=== PATIENT | male | born 1955 | race Caucasian/White ===

== ENCOUNTER 2024-10-12 16:10 | Inpatient (IN) | payer MEDICARE, OTHER ==
[~2024-10-12] VITALS: Ht 172.7 cm; Wt 62.1 kg
[~2024-10-12 16:10] MED LIST: ACET-2605 PO; ALBU8.5H8 IH; ASPI81TA31 PO; ATOR80TA PO; CARV3.122 PO; DOCU100C36 PO; EMPA10TA PO; FURO20TA4 PO; HYDR-4209 PO; LORA-259 PO; QUET25TA PO; SACU1TAB PO; SERT25TA PO
[2024-10-12 16:12] VITALS: BP 116/73
[2024-10-12] MEDS ORDERED: EMPA10TA PO (16:34)
[2024-10-12] MEDS ORDERED: HALO5TAB12 IM (16:34)
[2024-10-12 16:45] LABS: PLATELET COUNT (AUTO) 183 K/uL (152-348); RED BLOOD CELL COUNT(AUTO) 4.61 MIL/uL (4.06-5.63); RED CELL DISTRIBUTION WIDTH 14.0 % (12.1-16.2); WHITE BLOOD COUNT (AUTO) 7.2 K/uL (3.6-10.2)
[2024-10-12] MEDS ORDERED: ONDANSETRON 4 MG/2 ML VIAL IV PRN (16:45)
[2024-10-12] MEDS ORDERED: ACETAMINOPHEN 325 MG TABLET PO PRN (16:45)
[2024-10-12 16:57] LABS: CREATININE 1.9 mg/dL (0.6-1.3); SODIUM SERUM 142 mmol/L (136-145); UREA NITROGEN, BLOOD 41 mg/dL (7-18)
[2024-10-12 17:03] LABS: ASPARTATE AMINOTRANSFERASE 13 U/L (15-37); TOTAL PROTEIN, SERUM 7.0 g/dL (6.4-8.2)
[2024-10-12 17:05] LABS: ABG BASE EXCESS 0.5 mmol/L (-2.0-3.0); ABG HCO3 24.0 mmol/L (21.0-28.0); ABG PCO2 35.2 mmHg (35.0-48.0); ABG PH 7.452 (7.350-7.450); ABG PO2 71.4 mmHg (83.0-108.0); ABG SITE LEFT BRACHIAL; ABG TOTAL HEMOGLOBIN 14.2 G/dL (13.5-17.5); AaDO2 95.2 mmHg; FIO2 21.0 %
[2024-10-12 17:09] LABS: ETHANOL < 3 MG/DL (0-10)
[2024-10-12] MEDS: DOCUSATE SODIUM 100 MG CAPSULE PO SCH (18:00)
[2024-10-12 18:13] VITALS: BP 127/72; TEMP 97.6; O2SAT 95
[2024-10-12] MEDS: HEPARIN SODIUM,PORCINE 5,000 UNITS/ML VIAL SQ SCH (18:13)
[2024-10-12] MEDS: IV NS 1000 ML 1,000 ML IV SCH (18:13)
[2024-10-12 19:24] VITALS: BP 121/75; TEMP 98; O2SAT 98
[2024-10-12] MEDS: MORPHINE SULFATE 2 MG/1 ML DISP.SYRIN IVP PRN (20:39)
[2024-10-13 05:38] VITALS: BP 111/74; TEMP 98; O2SAT 98
[2024-10-13 06:46] LABS: PLATELET COUNT (AUTO) 147 K/uL (152-348); RED BLOOD CELL COUNT(AUTO) 4.00 MIL/uL (4.06-5.63); RED CELL DISTRIBUTION WIDTH 13.9 % (12.1-16.2); WHITE BLOOD COUNT (AUTO) 6.4 K/uL (3.6-10.2)
[2024-10-13 07:09] LABS: ASPARTATE AMINOTRANSFERASE 9.0 U/L (15-37); CREATININE 1.8 mg/dL (0.6-1.3); SODIUM SERUM 143.0 mmol/L (136-145); TOTAL PROTEIN, SERUM 5.9 g/dL (6.4-8.2); UREA NITROGEN, BLOOD 43.0 mg/dL (7-18)
[2024-10-13] MEDS ORDERED: ALBUTEROL SULFATE 8 GM HFA.AER.AD IH PRN (08:45)
[2024-10-13] MEDS ORDERED: HALOPERIDOL 5 MG TABLET PO PRN (08:45)
[2024-10-13] MEDS: DOCUSATE SODIUM 100 MG CAPSULE PO SCH (09:00)
[2024-10-13] MEDS: MIRALAX 17 GM POWD.PACK PO SCH (09:00)
[2024-10-13] MEDS: QUETIAPINE FUMARATE 25 MG TABLET PO SCH (09:13)
[2024-10-13] MEDS: FUROSEMIDE 20 MG TABLET PO SCH (09:13)
[2024-10-13] MEDS: SERTRALINE HCL 50 MG TABLET PO SCH (09:16)
[2024-10-13] MEDS: ASPIRIN 81 MG TAB.CHEW PO SCH (09:21)
[2024-10-13] MEDS: SACUBITRIL/VALSARTAN 24 MG-26 TABLET PO SCH (09:54)
[2024-10-13] MEDS: EMPAGLIFLOZIN 10 MG TABLET PO SCH (09:55)
[2024-10-13] MEDS: CARVEDILOL 3.125 MG TABLET PO SCH (09:56)
[2024-10-13] MEDS ORDERED: HALO5SYR3 IM (11:34)
[2024-10-13] MEDS ORDERED: ALBUTEROL SULFATE 2.5 MG/ 0.5 ML NEBU NEB PRN (11:45)
[2024-10-13 11:51] VITALS: BP 102/58; TEMP 98.2; O2SAT 96
[2024-10-13 15:58] VITALS: BP 129/69; TEMP 98.9; O2SAT 95
[2024-10-13] MEDS: ATORVASTATIN 40 MG TABLET PO SCH (20:12)
[2024-10-13 20:31] VITALS: BP 101/41; TEMP 98.3; O2SAT 95
[2024-10-14 04:06] VITALS: BP 155/86; TEMP 97.8; O2SAT 97
[2024-10-14 10:26] VITALS: BP 114/66; TEMP 98; O2SAT 96
[2024-10-14 15:26] VITALS: BP 104/78; TEMP 98.5; O2SAT 96
[2024-10-14 20:50] VITALS: BP 97/50; TEMP 98.5; O2SAT 92
[2024-10-15 05:37] VITALS: BP 122/62; TEMP 97.8; O2SAT 99
[2024-10-15 11:47] VITALS: BP 105/59; TEMP 98; O2SAT 98
== END 2024-10-15 13:30 | DRG 682 ==
LOC: ER 16:21 → MEDSURG3 17:38
PROVIDERS: ADMIT Internal Medicine; ATTEND Internal Medicine
DX: N17.9 Acute kidney failure, unspecified (principal); G93.41 Metabolic encephalopathy; F01.52 Vascular dementia, unspecified severity, with psychotic disturbance; I13.0 Hypertensive heart and chronic kidney disease with heart failure and stage 1 through stage 4 chronic kidney disease, or unspecified chronic kidney disease; R62.7 Adult failure to thrive; R53.1 Weakness; I25.10 Atherosclerotic heart disease of native coronary artery without angina pectoris; Z95.5 Presence of coronary angioplasty implant and graft; Z85.118 Personal history of other malignant neoplasm of bronchus and lung; E78.5 Hyperlipidemia, unspecified; J44.9 Chronic obstructive pulmonary disease, unspecified; Z68.20 Body mass index [BMI] 20.0-20.9, adult; I50.9 Heart failure, unspecified; E11.22 Type 2 diabetes mellitus with diabetic chronic kidney disease; N18.9 Chronic kidney disease, unspecified; Z79.899 Other long term (current) drug therapy; Z79.84 Long term (current) use of oral hypoglycemic drugs; Z86.73 Personal history of transient ischemic attack (TIA), and cerebral infarction without residual deficits
CPT/HCPCS: 36415; 36600; 70450; 71045; 83605; 84100; 84484; 85025; 85730; 87040; A4606; A4663; G0378; G0480; J1644; J2270; J7040